=== PATIENT | male | born 1980 | race Caucasian/White ===

== ENCOUNTER 2024-10-18 08:27 | Emergency (ER) | payer OTHER ==
[2024-10-18] MEDS ORDERED: Sodium Chloride 0.9% 10 ML Syringe FLUSH PRN (08:32)
[2024-10-18] MEDS: Ketorolac 15 MG/ML SDV IVPUSH ONE (08:43)
[2024-10-18] MEDS ORDERED: Silver Sulfadiazine 1% Crm 400 GM Jar ONE (09:45)
[2024-10-18] MEDS ORDERED: Acetaminophen/oxyCODONE 325-5 MG Tab ONE (09:45)
== END 2024-10-18 09:55 | disposition home or self-care (01) ==
LOC: LB.ED 08:27
DX: T23.241A Burn of second degree of multiple right fingers (nail), including thumb, initial encounter (principal); Z79.899 Other long term (current) drug therapy
CPT/HCPCS: 16020; 96374; 96375; 99283; 99283-25; A9270-GY; J1885; J2270